=== PATIENT | male | born 1955 | race Caucasian/White ===

== ENCOUNTER 2016-07-22 09:56 | Outpatient (CLI) | payer OTHER ==
[~2016-07-22 09:56] MED LIST: CANA300T PO; GLIP10TA74 PO; HUM10VIA3 SUBCUT; LISI10TA5; METF-305; METF1000 PO; OLME20TA14 PO; PIOG30TA70; PIOG45TA PO; ROSU10TA PO
== END 2016-07-22 19:41 | disposition home or self-care (01) ==
LOC: SRD 09:56
PROVIDERS: ATTEND Internal Medicine
DX: J90 Pleural effusion, not elsewhere classified (principal)
CPT/HCPCS: 71020-TC

== ENCOUNTER 2016-09-02 15:57 | Outpatient (CLI) | payer OTHER ==
[~2016-09-02 15:57] MED LIST changes: -LISI10TA5; -METF-305; -PIOG30TA70; -PIOG45TA PO
== END 2016-09-02 20:00 | disposition home or self-care (01) ==
LOC: SRD 15:57
PROVIDERS: ATTEND Specialist
DX: J98.11 Atelectasis (principal)
CPT/HCPCS: 71020-TC

== ENCOUNTER 2017-05-03 08:11 | Outpatient (CLI) | payer OTHER | END 2017-05-03 20:33 | disposition home or self-care (01) | LOC: SCT 08:11 | PROVIDERS: ATTEND Specialist | DX: I51.7 Cardiomegaly (principal); I70.90 Unspecified atherosclerosis; M47.894 Other spondylosis, thoracic region; R91.8 Other nonspecific abnormal finding of lung field; Z95.5 Presence of coronary angioplasty implant and graft | CPT/HCPCS: 71250-TC ==

== ENCOUNTER 2017-11-13 07:23 | Outpatient (CLI) | payer OTHER | END 2017-11-13 20:57 | disposition home or self-care (01) | LOC: SRD 07:23 | PROVIDERS: ATTEND Internal Medicine | DX: M25.522 Pain in left elbow (principal) ==

== ENCOUNTER 2018-03-24 15:16 | Outpatient (CLI) | payer OTHER ==
[~2018-03-24 15:16] MED LIST changes: +GLIP10TA3 PO; -GLIP10TA74 PO
== END 2018-03-24 20:01 | disposition home or self-care (01) ==
LOC: SCT 15:16
PROVIDERS: ATTEND Specialist
DX: I25.10 Atherosclerotic heart disease of native coronary artery without angina pectoris (principal); I70.0 Atherosclerosis of aorta
CPT/HCPCS: 71250-TC

== ENCOUNTER 2019-04-26 21:09 | Emergency (ER) | payer OTHER ==
[~2019-04-26] VITALS: Ht 172.7 cm; Wt 102.1 kg
[~2019-04-26 21:09] MED LIST changes: +OLME20TA13 PO; -OLME20TA14 PO; -ROSU10TA PO; +ROSU10TA2 PO
[2019-04-26 21:14] VITALS: BP_SYST 133
[2019-04-26] MEDS ORDERED: LIDOCAINE 1% 10 MG/ML, 20 ML MDV INJ ONE (21:45)
[2019-04-26] MEDS ORDERED: ONDANSETRON 4 MG ODT TAB PO ONE (21:45)
[2019-04-26] MEDS ORDERED: HYDROcodone/ACETAMIN 5-325 MG TAB (NORCO/ VICODIN) PO ONE (21:45)
[2019-04-26] MEDS ORDERED: DIPH-TET-PERTUS Vaccine 0.5 ML VIAL (ADACEL) I.M. ONE (21:45)
[2019-04-26] MEDS ORDERED: CLINDAMYCIN HCL 150 MG CAPSULE PO ONE (22:30)
[2019-04-26] MEDS ORDERED: CEPHALEXIN 500 MG CAPSULE PO ONE (22:30)
[2019-04-26 22:56] VITALS: BP_SYST 130
== END 2019-04-26 22:58 | disposition home or self-care (01) ==
LOC: SED 21:09
DX: L02.512 Cutaneous abscess of left hand (principal)
CPT/HCPCS: 26010; 90471; 90715; 99284; J2001; Q0162

== ENCOUNTER 2019-12-06 09:51 | Outpatient (CLI) | payer BC | END 2019-12-06 21:05 | disposition home or self-care (01) | LOC: SRD 09:51 | DX: R07.9 Chest pain, unspecified (principal); J44.9 Chronic obstructive pulmonary disease, unspecified; E11.40 Type 2 diabetes mellitus with diabetic neuropathy, unspecified; I25.10 Atherosclerotic heart disease of native coronary artery without angina pectoris; I47.1 Supraventricular tachycardia; I48.19 Other persistent atrial fibrillation; R00.2 Palpitations; Z01.810 Encounter for preprocedural cardiovascular examination | CPT/HCPCS: 71046-TC ==

== ENCOUNTER 2021-05-08 20:45 | Emergency (ER) | payer BC ==
[~2021-05-08] VITALS: Ht 185.4 cm; Wt 99.8 kg
--- NOTE | 2021-05-08 20:45 | NUR ---
Patient to ER bed 4 to gown for evaluation. Side rails up. Report given to KESHIA VILLEGAS.
--- NOTE | 2021-05-08 20:52 | NUR ---
ER Dr. BELCHER at bedside examining patient.
[2021-05-08 21:00] VITALS: BP_SYST 117
[2021-05-08] MEDS ORDERED: ASPIRIN 81 MG TAB.CHEW PO ONE (21:00)
--- NOTE | 2021-05-08 21:04 | NUR ---
XR at bedside
--- NOTE | 2021-05-08 21:04 | NUR ---
# 20 gauge angiocath placed to L Forearm. Use of asceptic technique. Opsite placed over site. Blood return noted. Blood for lab drawn from site. Flushed with 10 cc of normal saline. No evidence of infiltration noted. Patient tolerated well.
--- NOTE | 2021-05-08 21:05 | NUR ---
pt arrived to er for chest pain that started at around 1950 today. pt was cleaning his restroom and started having chest pain for the first time. pt had a dentist appointment for a procedure on wednesday the and was told to stop tksing some of his meds. pt has a hx of dm, asthma and a-fib. pt hasnt stopped taking his eliquis. a&ox4. pain is 10/10 initially, but now has subsided to about 6/10 per the pt.
[2021-05-08 21:28] LABS: BASOPHILS % (AUTO) 0.5 % (0.0-2.0); EOSINOPHILS # (AUTO) 0.3 K/uL (0.0-0.4); EOSINOPHILS % (AUTO) 4.4 % (0.0-4.0); HEMOGLOBIN 15.1 g/dL (14.0-18.0); LYMPHOCYTES # (AUTO) 2.7 K/uL (1.0-5.5); LYMPHOCYTES % (AUTO) 39.6 % (20.5-51.5); MEAN CORPUSCULAR HEMOGLOBIN 32 pg (27-31); MEAN CORPUSCULAR HGB CONC 34 % (32-36); MEAN CORPUSCULAR VOLUME 93 fL (79.0-98.0); MONOCYTES # (AUTO) 0.5 K/uL (0.0-1.0); MONOCYTES % (AUTO) 8.1 % (1.7-9.3); NEUTROPHILS # (AUTO) 3.2 K/uL (1.8-7.7); NEUTROPHILS % (AUTO) 47.4 % (40.0-70.0); PLATELET COUNT (AUTO) 220 K/uL (130-430); RED BLOOD CELL COUNT(AUTO) 4.75 MIL/uL (4.2-6.2); RED CELL DISTRIBUTION WIDTH 13.1 % (9.0-15.0); WHITE BLOOD COUNT (AUTO) 6.8 K/uL (4.8-10.8)
[2021-05-08 21:32] LABS: CALCIUM 9.1 mg/dL (8.4-11.0); CREATININE 1.03 mg/dL (0.55-1.30); POTASSIUM 3.7 mmol/L (3.5-5.1)
[2021-05-08 21:42] LABS: ALBUMIN 3.7 g/dL (3.4-4.8); TOTAL BILIRUBIN 0.2 mg/dL (0.0-1.0)
--- NOTE | 2021-05-08 22:40 | NUR ---
ER Dr. DOLL at bedside examining patient.
[2021-05-08] MEDS ORDERED: NITROGLYCERIN 1 INCH (GM) OINT. TP ONE (23:00)
[2021-05-08] MEDS ORDERED: OMEP20CA15 PO (23:47)
--- NOTE | 2021-05-09 01:15 | NUR ---
Patient given written and verbal discharge instructions and verbalizes understanding. ER MD discussed with patient the results and treatment provided. Patient in stable condition. ID arm band removed. IV catheter removed intact and dressing applied, no active bleeding. Rx of OMEPRAZOLE given. Patient educated on pain management and to follow up with PMD. Pain Scale 0/10. Opportunity for questions provided and answered. Medication side effect fact sheet provided.
[2021-05-09 01:24] VITALS: BP_SYST 117
== END 2021-05-09 01:15 | disposition home or self-care (01) ==
LOC: SED 20:45
DX: R07.89 Other chest pain (principal); K21.9 Gastro-esophageal reflux disease without esophagitis; I48.91 Unspecified atrial fibrillation; E11.9 Type 2 diabetes mellitus without complications; Z79.84 Long term (current) use of oral hypoglycemic drugs; Z79.899 Other long term (current) drug therapy
CPT/HCPCS: 36415; 71045; 80053; 83880; 84484; 85025; 93005; 99285

== ENCOUNTER 2021-06-16 11:28 | Emergency (ER) | payer BC, SELFPAY ==
[~2021-06-16] VITALS: Ht 185.4 cm; Wt 99.8 kg
[~2021-06-16 11:28] MED LIST changes: +OMEP20CA15 PO
--- NOTE | 2021-06-16 11:30 | NUR ---
Pt triaged and placed in tent.
--- NOTE | 2021-06-16 11:45 | NUR ---
Pt walked in to ER with c/o Flu like symptoms, reports Covid + as of last week, sore throat, runny nose, cough and congestion. O2 98% on RA other v/s stable, no acute distress noted.
[2021-06-16 11:58] VITALS: BP_SYST 127
--- NOTE | 2021-06-16 13:00 | NUR ---
ER Dr. Evans at bedside examining patient.
[2021-06-16 13:24] VITALS: BP_SYST 127
--- NOTE | 2021-06-16 13:25 | NUR ---
Patient given written and verbal discharge instructions and verbalizes understanding. ER MD discussed with patient the results and treatment provided. Patient in stable condition. ID arm band removed. no prescriptions given. Patient educated on pain management and to follow up with PMD. Pain Scale 0. Opportunity for questions provided and answered. Medication side effect fact sheet provided.
== END 2021-06-16 13:24 | disposition home or self-care (01) ==
LOC: SED 11:28
DX: U07.1 COVID-19 (principal); E11.9 Type 2 diabetes mellitus without complications; I48.91 Unspecified atrial fibrillation; Z79.84 Long term (current) use of oral hypoglycemic drugs; Z79.899 Other long term (current) drug therapy
CPT/HCPCS: 99281

== ENCOUNTER 2022-11-01 22:16 | Emergency (ER) | payer BC, OTHER ==
[~2022-11-01] VITALS: Ht 185.4 cm; Wt 99.8 kg
[~2022-11-01 22:16] MED LIST changes: -OLME20TA13 PO; +OLME20TA74 PO
[2022-11-01 22:39] VITALS: BP_SYST 127
[2022-11-01 22:50] VITALS: BP_SYST 127
[2022-11-01] MEDS ORDERED: NIRM1TAB PO (22:55)
== END 2022-11-01 23:24 | disposition home or self-care (01) ==
LOC: SED 22:16
DX: U07.1 COVID-19 (principal); J45.909 Unspecified asthma, uncomplicated; M79.10 Myalgia, unspecified site; E11.9 Type 2 diabetes mellitus without complications; Z79.4 Long term (current) use of insulin; Z79.899 Other long term (current) drug therapy
CPT/HCPCS: 99283